=== PATIENT | male | born 1980 | race Caucasian/White ===

== ENCOUNTER 2017-05-23 11:04 | Outpatient (CLI) | payer BC ==
[~2017-05-23] VITALS: Ht 162.6 cm; Wt 108.2 kg
[2017-05-23 11:12] VITALS: BP 134/87; PULSE 89; RESP 18; Ht 162.6 cm; Wt 108.2 kg
--- NOTE | 2017-05-23 11:45 | CONS ---
Date/Time of Note Date/Time of Note DATE: 05/23/17 TIME: 11:45 Assessment/Plan Assessment/Plan Additional Assessment/Plan [facility] INITIAL OUTPATIENT CONSULTATION NOTE DATE OF CONSULTATION: 05/23/2017 PLACE OF SERVICE: [facility] ASSESSMENT AND PLAN: A very-pleasant and otherwise fairly healthy 36-year-old gentleman with only comorbidity of BMI 40.9, presenting with perhaps a small umbilical hernia that seems to be relatively asymptomatic. No evidence of incarceration or significant impact on life. I strongly recommended that we watch this for now and the patient appears to be comfortable doing so. Reviewed the symptoms of incarcerated hernia and steps to approach it if it happens in the future. Answered all questions. Patient appeared to understand and agreed with plans. With above assessment, I've recommended the followin. Watchful observation 2. Patient has my contact information and I encouraged him to keep in touch with my practice if the symptoms continued, or in particular, if they worsened Thank you very much for having me involved in the care of this very pleasant patient and wonderful family. If you have any questions, please feel free to contact me at [phone]. Nature of presenting problem: Low severity Please note that, given the limited number of diagnoses or management options, the limited amount and/or complexity of data needed to be reviewed, and low risk of complications and/or morbidity or mortality, this qualifies as straightforward complexity type of decision-making. Disclaimers: 1. Inadvertent spelling and grammatical errors are likely due to electronic health record (EHR)/dictation software used and do not reflect on the quality of delivered patient care. 2. The electronic timestamp recorded on this note does not necessarily reflect the actual date and time of the visit or the service. 3. Portions of this note may have been created through electronic templates and computer algorithms that might bring in information either from the system or from other physicians and providers. Please note that such information may or may not contain errors, the occurrence of which are outside of my control. In general (but not always) this happens either in the beginning or at the end of the note. The portion of the note that I have created are generally done in 1 continuous block of text, flanked at the beginning and at the end by " ", and entered into one field in the EHR. 4. There may be other unanticipated errors in the note that are outside of my control. I can only attest to the portions of the note that I have created. Updated clinical summary: A very-pleasant and otherwise fairly healthy 36-year-old gentleman with only comorbidity of BMI 40.9, presenting with perhaps a small umbilical hernia that seems to be relatively asymptomatic. Comorbidities: 1. BMI 40.9 2. Allergic to penicillin (hives) and clarithromycin (diarrhea) 3. Left clavicular scar tissue from LN 4. Right spontaneous pneumothorax, 1999, required chest tube 5. Occasional back pain 6. Mention of anxiety in the chart, on clonazepam CONSULTATION REQUESTED BY: Trell Ventura MD Dear Dr. Ventura, Thank you very much for the opportunity to participate in the care of this very pleasant gentleman and I'm certain his wonderful family. HISTORY OF PRESENT ILLNESS: The patient is a very pleasant and otherwise fairly healthy 36-year-old gentleman with only major comorbidity of BMI 40, presenting with umbilical discomfort that seems to have been periodic. Patient wanted surgical opinion regarding possible management. He did not describe long -standing problem with this issue and it was only discovered recently at the examination of his primary care physician, Dr. Ventura. 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 He has not been affected by his umbilical region and does not describe significant amount of pain or discomfort. He has been able to do all physical activities and otherwise does not have any other major complaints. ALLERGIES: NO KNOWN DRUG ALLERGIES MEDICATIONS Documented in the electronic records and reviewed by me. Please see the electronic records for details. SOCIAL HISTORY: The patient lives with family. Has a child. Works as an event organizer.-[employer];-ETOH;-IVDU FAMILY HISTORY: There are no significant medical, surgical or oncologic issues in the family as reported by the patient or reflected in the chart. REVIEW OF SYSTEMS: Other than mentioned above, there were no other pertinent positives or pertinent negatives in an otherwise complete 14 point review of systems. PHYSICAL EXAMINATION GENERAL: The patient appears to be a very pleasant gentleman of non- descent lying in bed, appearing stated age,] and otherwise in no acute distress. BMI: 40.9 VITAL SIGNS: AVSS (please also see auto important data if available as well as the electronic records) HEENT: Normocephalic and atraumatic. Extraocular muscles and hearing are grossly intact bilaterally and symmetrically. Sclerae are nonicteric. Oral cavity is clear; oral mucosa appear to be pink and moist. Dentition: fair. NECK: Supple. There is no lymphadenopathy or JVD. There is no submental, submandibular or supraclavicular lymphadenopathy. CHEST: Rises symmetrically with each breath; patient is breathing comfortably. There are no audible wheezes, rales or rhonchi on the gross exam. HEART: Pulse is regular and palpable on the right wrist. Capillary refill is normal. Carotid pulses are palpable bilaterally and symmetrically in the neck. EXTREMITIES: Lower extremities contain no pitting edema around the ankles bilaterally and symmetrically. ABDOMEN: Abdomen is soft, nontender and nondistended. No evidence of ascites, organomegaly, caput medusae, engorged subcutaneous veins, or other abnormalities. There are no peritoneal signs or guarding. Deep palpation within umbilical region causes minor discomfort. I do not feel any obvious defect and there is no obvious herniated tissue with Valsalva maneuver. SKIN: Appears to be pink and feels warm to touch. NEUROLOGIC: Awake, alert, and follows commands appropriately. LABORATORY DATA: See below IMAGING: See electronic chart. Please note that I've personally reviewed all pertinent available images and I agree in general with their overall reported findings. Consultation Date/Type/Reason Admit Date/Time Exam/Review of Systems Vital Signs Vitals Vital Signs Date Time Temp Pulse Resp B/P Pulse Ox O2 Delivery O2 Flow Rate FiO2 05/23/17 11:12 97.7 89 18 134/87 96 Room Air BERTO JOHNSTON M.D. May 23, 2017 11:45
== END 2017-05-23 17:00 | disposition home or self-care (01) ==
LOC: HPC 11:04
PROVIDERS: ATTEND Transplant Surgery
DX: K42.9 Umbilical hernia without obstruction or gangrene (principal); M54.9 Dorsalgia, unspecified; F41.9 Anxiety disorder, unspecified; Z88.0 Allergy status to penicillin
CPT/HCPCS: G0463